=== PATIENT | male | born 1990 | race Caucasian/White ===

== ENCOUNTER 2019-11-27 08:43 | Emergency (ER) | payer OTHER ==
[~2019-11-27] VITALS: Ht 172.7 cm; Wt 140.6 kg
[2019-11-27] MEDS ORDERED: LIDOCAINE VISC100 ML SWISH&SPIT (10:11)
[2019-11-27] MEDS ORDERED: AMOXICILLIN 50500 MG PO (10:11)
[2019-11-27] MEDS ORDERED: TYLENOL WITH CO1 TA1 PO (10:11)
[2019-11-27 10:25] VITALS: BP 143/89
== END 2019-11-27 10:27 | disposition home or self-care (01) ==
LOC: M.ERS 08:43
DX: K04.7 Periapical abscess without sinus (principal)